=== PATIENT | female | born 1935 | race Caucasian/White ===

== ENCOUNTER → 2016-11-19 | Outpatient (CLI) | payer OTHER ==
[~2016-11-19] MED LIST: BIOT1TAB5 PO; LEVO100T7 PO; LEVO112T4 PO; METR0.75 TOP; POTA20TA16 PO; ZCR40 PO; [UNRECOGNIZED DRUG - CODE] INSTIL
== END | disposition home or self-care (01) ==
LOC: C.PATHSPEC 16:59
PROVIDERS: ATTEND Urology
DX: C67.9 Malignant neoplasm of bladder, unspecified (principal)

== ENCOUNTER → 2017-11-25 | Outpatient (CLI) | payer OTHER | END | disposition home or self-care (01) | LOC: C.PATHSPEC 10:24 | PROVIDERS: ATTEND Urology | DX: C67.9 Malignant neoplasm of bladder, unspecified (principal) ==